=== PATIENT | female | born 1935 | race Caucasian/White ===

== ENCOUNTER 2019-10-31 18:39 | Inpatient (IN) ==
[2019-10-31] MEDS ORDERED: Morphine Sulfate 2 MG/ML SYRINGE IVP ONE (21:07)
[2019-10-31] MEDS ORDERED: Ondansetron 4 MG/2 ML VIAL IVP ONE (21:08)
[2019-10-31] MEDS ORDERED: Tdap (Boostrix) Vaccine 0.5 ML SYRINGE IM ONE (21:14)
[2019-10-31 21:49] LABS: Basophils # 0.1 K/mcL (0.0-0.2); Basophils % 0.4 %; Eosinophils # 0.1 K/mcL (0.0-0.6); Eosinophils % 0.4 %; Hematocrit 44.1 % (35.3-44.9); Hemoglobin 14.1 g/dL (11.5-15.4); Immature Granulocytes % 0.6 % (0-4); Lymphocytes # 1.5 K/mcL (0.6-4.6); Lymphocytes % 10.5 %; Mean Corpuscular Hemoglobin 30.1 pg (28.0-33.3); Mean Platelet Volume 10.1 fL (9.4-12.4); Monocytes % 7.1 %; Neutrophils # 11.3 K/mcL (1.6-8.9); Platelet Count 214 K/mcL (140-400); Red Blood Count 4.69 M/mcL (3.82-4.97); Red Cell Distribution Width 13.2 % (11.5-14.5); White Blood Count 13.9 K/mcL (4.3-11.1)
[2019-10-31 22:08] LABS: BUN/Creatinine Ratio 17 (6-26); Blood Urea Nitrogen 18 mg/dL (8-23); Calcium 10.2 mg/dL (8.6-10.3); Carbon Dioxide 22 mEq/L (23-29); Chloride 105 mEq/L (98-107); Glucose 152 mg/dL (70-105); Osmolality,Calculated 293 (280-300); Potassium 3.8 mEq/L (3.5-5.1); Sodium 139 mEq/L (136-145); eGFR For African Americans > 60 (> 60); eGFR For Non-African Americans 50 (> 60)
[2019-10-31] MEDS ORDERED: Naloxone 0.4 MG/ML INJ IVP PRN ×2 (22:29→22:31)
[2019-10-31] MEDS ORDERED: 0.9 % Sodium Chloride 1,000 ML IVC SCH (22:45)
[2019-11-01 01:29] LABS: Bilirubin,Urine Negative (Negative); Blood,Urine Negative (Negative); Clarity,Urine Clear (Clear); Color,Urine Yellow (Yellow); Glucose,Urine (UA) Normal (Normal); Ketones,Urine Negative (Negative); Leukocyte Esterase,Urine Trace (Negative); Nitrite,Urine Negative (Negative); PH,Urine 5.5 pH Units (5.0-8.0); Protein,Urine Negative (Neg-Trace); Specific Gravity,Urine 1.027 (1.010-1.025); Urobilinogen,Urine Normal (Normal)
[2019-11-01 01:31] LABS: Bacteria,Urine None Seen per hpf (None-Few); Hyaline Casts,Urine None Seen per lpf (None-Few); Squamous Epithelial Cell,Urine Many per lpf (None-Few)
[2019-11-01 05:50] LABS: Hematocrit 38.6 % (35.3-44.9); Mean Corpuscular HGB Conc 31.3 g/dL (31.6-35.5); Mean Corpuscular Hemoglobin 30.1 pg (28.0-33.3); Mean Platelet Volume 10.4 fL (9.4-12.4); Platelet Count 213 K/mcL (140-400); Red Blood Count 4.02 M/mcL (3.82-4.97); Red Cell Distribution Width 13.2 % (11.5-14.5); Segmented Neutrophils % 67.9 %; White Blood Count 11.1 K/mcL (4.3-11.1)
[2019-11-01 05:51] LABS: Basophils % 0.3 %; Eosinophils % 0.1 %; Immature Granulocytes % 0.5 % (0-4); Lymphocytes % 18.2 %; Monocytes # 1.4 K/mcL (0.0-1.3); Neutrophils # 7.5 K/mcL (1.6-8.9)
[2019-11-01 05:52] LABS: Hemoglobin 12.1 g/dL (11.5-15.4)
[2019-11-01 06:01] LABS: INR 1.1; Prothrombin Time 12.8 Seconds (9.4-12.1)
[2019-11-01 06:10] LABS: Alanine Aminotransferase 26 Units/L (7-52); Albumin 3.8 g/dL (3.5-5.7); Albumin/Globulin Ratio 1.5 (1.1-2.2); Alkaline Phosphatase 42 Units/L (34-104); Aspartate Amino Transferase 29 Units/L (13-39); BUN/Creatinine Ratio 18 (6-26); Bilirubin,Total 0.5 mg/dL (0.3-1.0); Blood Urea Nitrogen 19 mg/dL (8-23); Calcium 9.4 mg/dL (8.6-10.3); Carbon Dioxide 25 mEq/L (23-29); Chloride 107 mEq/L (98-107); Chol/HDL Ratio 3.6 (0-4.9); Cholesterol 163 mg/dL (< 200); Globulin 2.5 g/dL (2.4-3.5); Glucose 122 mg/dL (70-105); HDL Cholesterol 45 mg/dL (40-59); LDL Cholesterol,Calculated 95 mg/dL (0-99); Magnesium 1.7 mg/dL (1.6-2.6); Osmolality,Calculated 294 (280-300); Potassium 4.1 mEq/L (3.5-5.1); Sodium 140 mEq/L (136-145); Total Protein 6.3 g/dL (6.4-8.9); Triglycerides 114 mg/dL (< 150); eGFR For African Americans > 60 (> 60); eGFR For Non-African Americans 51 (> 60)
[2019-11-01 08:34] LABS: Estimated Average Glucose 134 mg/dl
[2019-11-01] MEDS ORDERED: lisinopriL 10 MG TABLET PO SCH (09:00)
[2019-11-01] MEDS ORDERED: *HR* FentaNYL (PF) 100 MCG/2 ML VIAL ONE (14:47)
[2019-11-01] MEDS ORDERED: Lidocaine -MPF 2% 2 ML VIAL ONE (14:47)
[2019-11-01] MEDS ORDERED: Dexamethasone 4 MG/ML VIAL ONE (14:47)
[2019-11-01] MEDS ORDERED: *HR* Rocuronium Bromide 50 MG/5 ML VIAL ONE (14:47)
[2019-11-01] MEDS ORDERED: *HR* Propofol 200 MG/20 ML VIAL IVP ONE (14:47)
[2019-11-01] MEDS ORDERED: Ondansetron 4 MG/2 ML VIAL ONE (14:47)
[2019-11-01] MEDS ORDERED: *HR* Succinylcholine 200 MG/10 ML VIAL IVP ONE (14:47)
[2019-11-01] MEDS ORDERED: Lidocaine HCL 4 ML Topical Solution (Laryng-O-Jet Kit Sterile Pak) TP ONE (14:50)
[2019-11-01] MEDS ORDERED: Bupivacaine/EPI 1:200k 0.5%PF 10 ML VIAL ONE (14:57)
[2019-11-01] MEDS ORDERED: Ethanol\\Acetic Acid\\Na Ace\\Ben 1,000 ML IRRIG.SOLN IR ONE (14:57)
[2019-11-01] MEDS ORDERED: CeFAZolin Syr 2,000MG/20 ML 2,000 MG/20 ML SYRINGE IVPB ONE (15:05)
[2019-11-01] MEDS ORDERED: ROPIVACAINE/PF/NS 0.25% 1 EACH SYRINGE INTRAART ONE (15:06)
[2019-11-01] MEDS ORDERED: Ropivacaine/PF 0.5% 30 ML VIAL ONE (15:06)
[2019-11-01] MEDS ORDERED: Ondansetron 4 MG/2 ML VIAL IVP ONE (15:12)
[2019-11-01] MEDS ORDERED: *HR* HYDROmorphone PF 0.5 MG/0.5 ML SYRINGE IVP PRN (15:12)
[2019-11-01] MEDS ORDERED: *HR* Labetalol 20 MG/4 ML SYRINGE IVP PRN (15:12)
[2019-11-01] MEDS ORDERED: *HR* Promethazine 25 MG/ML VIAL IVP PRN ×2 (15:12→19:04)
[2019-11-01] MEDS ORDERED: *HR* OxyCODONE Immed Rel 5 MG TABLET PO PRN (15:12)
[2019-11-01] MEDS ORDERED: EPHEDrine 50 MG/ML VIAL ONE (16:03)
[2019-11-01] MEDS ORDERED: *HR* Heparin 5,000 UNIT/ML VIAL SQ SCH (18:00)
[2019-11-01] MEDS ORDERED: Naloxone 0.4 MG/ML INJ IVP PRN (18:57)
[2019-11-01 19:05] LABS: Hemoglobin 12.1 g/dL (11.5-15.4)
[2019-11-01] MEDS ORDERED: Melatonin 3 MG TABLET PO SCH (21:00)
[2019-11-01] MEDS: Melatonin 3 MG TABLET PO SCH (21:28)
[2019-11-01] MEDS: ceFAZolin 2,000 MG in 0.9 % Sodium Chloride 100 ML IVPB SCH (23:57)
[2019-11-02 02:40] LABS: Basophils % 0.2 %; Hematocrit 35.7 % (35.3-44.9); Immature Granulocytes % 0.7 % (0-4); Lymphocytes % 9.4 %; Mean Corpuscular HGB Conc 30.8 g/dL (31.6-35.5); Mean Corpuscular Hemoglobin 30.1 pg (28.0-33.3); Mean Corpuscular Volume 97.5 fL (83.0-100.0); Mean Platelet Volume 10.7 fL (9.4-12.4); Monocytes # 1.1 K/mcL (0.0-1.3); Neutrophils # 8.1 K/mcL (1.6-8.9); Platelet Count 179 K/mcL (140-400); Red Blood Count 3.66 M/mcL (3.82-4.97); Red Cell Distribution Width 13.1 % (11.5-14.5); Segmented Neutrophils % 78.7 %; White Blood Count 10.3 K/mcL (4.3-11.1)
[2019-11-02 03:08] LABS: BUN/Creatinine Ratio 18 (6-26); Blood Urea Nitrogen 16 mg/dL (8-23); Calcium 8.8 mg/dL (8.6-10.3); Carbon Dioxide 24 mEq/L (23-29); Chloride 105 mEq/L (98-107); Glucose 164 mg/dL (70-105); Osmolality,Calculated 291 (280-300); Sodium 138 mEq/L (136-145); eGFR For African Americans > 60 (> 60); eGFR For Non-African Americans > 60 (> 60)
[2019-11-02] MEDS: amLODIPine 5 MG TABLET PO SCH (08:57)
[2019-11-02] MEDS: ceFAZolin 2,000 MG in 0.9 % Sodium Chloride 100 ML IVPB SCH (08:58)
[2019-11-02] MEDS: Melatonin 3 MG TABLET PO SCH (21:57)
[2019-11-03 06:19] LABS: Basophils % 0.2 %; Eosinophils % 0.2 %; Hematocrit 33.5 % (35.3-44.9); Hemoglobin 10.4 g/dL (11.5-15.4); Immature Granulocytes % 0.7 % (0-4); Lymphocytes # 2.4 K/mcL (0.6-4.6); Lymphocytes % 22.8 %; Mean Corpuscular Hemoglobin 29.8 pg (28.0-33.3); Mean Platelet Volume 10.8 fL (9.4-12.4); Monocytes # 1.8 K/mcL (0.0-1.3); Neutrophils # 6.1 K/mcL (1.6-8.9); Platelet Count 168 K/mcL (140-400); Red Blood Count 3.49 M/mcL (3.82-4.97); Red Cell Distribution Width 13.4 % (11.5-14.5); Segmented Neutrophils % 59.1 %; White Blood Count 10.3 K/mcL (4.3-11.1)
[2019-11-03 06:39] LABS: BUN/Creatinine Ratio 18 (6-26); Blood Urea Nitrogen 16 mg/dL (8-23); Carbon Dioxide 30 mEq/L (23-29); Chloride 102 mEq/L (98-107); Glucose 131 mg/dL (70-105); Osmolality,Calculated 289 (280-300); Potassium 3.7 mEq/L (3.5-5.1); Sodium 138 mEq/L (136-145); eGFR For African Americans > 60 (> 60); eGFR For Non-African Americans > 60 (> 60)
[2019-11-03] MEDS: amLODIPine 5 MG TABLET PO SCH (07:57)
[2019-11-03] MEDS: *HR* Enoxaparin 40 MG/0.4 ML SYRINGE SQ SCH (11:40)
[2019-11-03] MEDS ORDERED: polyethylene glycoL 3350 17 GM POWD.PACK PO PRN (16:55)
[2019-11-03] MEDS: Melatonin 3 MG TABLET PO SCH (23:27)
[2019-11-04] MEDS: *HR* Enoxaparin 40 MG/0.4 ML SYRINGE SQ SCH (09:16)
[2019-11-04] MEDS: amLODIPine 5 MG TABLET PO SCH (09:16)
[2019-11-04] MEDS: Melatonin 3 MG TABLET PO SCH (22:02)
[2019-11-05 05:27] LABS: Hematocrit 33.9 % (35.3-44.9); Hemoglobin 10.9 g/dL (11.5-15.4)
[2019-11-05 07:07] VITALS: BP 151/76
[2019-11-05] MEDS: amLODIPine 5 MG TABLET PO SCH (08:17)
[2019-11-05] MEDS: *HR* Enoxaparin 40 MG/0.4 ML SYRINGE SQ SCH (08:18)
== END 2019-11-05 11:39 | DRG 483 ==
LOC: 3NENU 18:39 → EMEROOARM 18:39 → SUATTDRO 23:16 → 3NENU 11-01 00:28
PROVIDERS: ADMIT Internal Medicine; ATTEND Internal Medicine